=== PATIENT | female | born 1985 | race Caucasian/White ===

== ENCOUNTER 2016-11-03 22:46 | Emergency (ER) | payer OTHER ==
[~2016-11-03] VITALS: Ht 170.2 cm; Wt 90.7 kg
[~2016-11-03 22:46] MED LIST: SULF1TAB24 PO
--- NOTE | 2016-11-03 22:47 | ED.ADGEN ---
Past History Past Medical History: No Pertinent History Past Surgical History: Tonsillectomy Alcohol Use: None Drug Use: None Adult General Chief Complaint Chief Complaint " .. I was just setting around and got this bad lower abd. pain.."" [facility] HPI Patient is a 31 year old female who presents with above hx and complaints. She reports marked lower pelvic pain. Patient denies any trauma. Patient denies any bad food patient denies any change in bowel habits. Patient denies any dysuria. Patient denies any ill contacts. Patient denies any travel. Patient is normally healthy. Review of Systems Review of Systems Constitutional: Denies fever or chills [] Eyes: Denies change in visual acuity, redness, or eye pain [] HENT: Denies nasal congestion or sore throat [] Respiratory: Denies cough or shortness of breath [] Cardiovascular: No additional information not addressed in HPI [] GI: Complaints of lower Rt. abdominal pain. Denies nausea, vomiting, bloody stools or diarrhea [] : Denies dysuria or hematuria [] Musculoskeletal: Denies back pain or joint pain [] Integument: Denies rash or skin lesions [] Neurologic: Denies headache, focal weakness or sensory changes [] Endocrine: Denies polyuria or polydipsia [] Family History Family History Noncontributory Current Medications Current Medications Current Medications Medications (Trade) Dose Ordered Sig/Stella Start Time Stop Time Status Last Admin Dose Admin Ceftriaxone Sodium/Sodium Chloride (Rocephin/Iv Sodium Chloride 0.9% 50ml) 50 ml @ 100 mls/hr 1X ONCE 11/04/16 03:30 11/04/16 03:59 DC 11/04/16 03:30 100 MLS/HR Ceftriaxone Sodium (Rocephin) 1 gm STK-MED ONCE 11/04/16 04:02 11/04/16 11:27 DC Famotidine (Pepcid) 20 mg 1X ONCE 11/04/16 00:45 11/04/16 00:46 DC 11/04/16 00:45 20 MG Info 1 each 1 each PRN DAILY PRN 11/04/16 03:15 11/04/16 08:47 DC Iohexol (Omnipaque 240 Mg/ml) 30 ml 1X ONCE 11/04/16 03:30 11/04/16 03:31 DC 11/04/16 04:08 30 ML Iohexol (Omnipaque 300 Mg/ml) 75 ml 1X ONCE 11/04/16 03:30 11/04/16 03:31 DC 11/04/16 04:08 75 ML Lactated Ringer's (Iv Lactated Ringers) 1,000 ml @ 1,000 mls/hr Q1H 11/04/16 00:45 11/04/16 08:47 DC 11/04/16 01:31 1,000 MLS/HR Magnesium Hydroxide (Milk Of Magnesia) 2,400 mg 1X ONCE 11/04/16 00:45 11/04/16 00:46 DC 11/04/16 00:45 2,400 MG Magnesium Sulfate 50 ml @ 25 mls/hr 1X ONCE 11/04/16 04:00 11/04/16 05:59 DC 11/04/16 04:00 25 MLS/HR Ondansetron HCl (Zofran) 8 mg 1X ONCE 11/04/16 00:45 11/04/16 00:46 DC 11/04/16 00:45 8 MG Sodium Chloride (Iv Sodium Chloride 0.9% 50ml) 50 ml @ As Directed STK-MED ONCE 11/04/16 04:02 11/04/16 11:27 DC Trimethoprim/ Sulfamethoxazole 1 tab 1 tab 1X ONCE 11/04/16 02:15 11/04/16 02:16 DC 11/04/16 02:02 1 TAB See nursing for home meds Allergies Allergies Allergies Coded Allergies Type Severity Reaction Last Updated Verified codeine Allergy Unknown 11/09/14 No Physical Exam Physical Exam Constitutional: W, mild distress, non-toxic appearance. [] HENT: Normocephalic, atraumatic, bilateral external ears normal, oropharynx moist, no oral exudates, nose normal. [] Eyes: PERRLA, EOMI, conjunctiva normal, no discharge. [] Neck: Normal range of motion, no tenderness, supple, no stridor. [] Cardiovascular:Heart rate regular rhythm, no murmur [] Lungs & Thorax: Bilateral breath sounds clear to auscultation [] Abdomen: Bowel sounds decreased, soft, lower pelvic tenderness, no masses, no pulsatile masses. [] Patient declines rectal and pelvic exam at this time. Mild distention. Mild rebound to right lower quadrant Skin: Warm, dry, no erythema, no rash. [] Back: No tenderness, no CVA tenderness. [] Extremities: No tenderness, no cyanosis, no clubbing, ROM intact, no edema. [] Mild heel tap to right lower quadrant Neurologic: Alert and oriented X 3, normal motor function, normal sensory function, no focal deficits noted. [] Psychologic: Affect very anxious, judgement normal, mood normal. [] Current Patient Data Vital Signs Vital Signs Date Time Temp Pulse Resp B/P Pulse Ox O2 Delivery O2 Flow Rate FiO2 11/04/16 05:19 98.0 103 20 125/83 97 Room Air Lab Results Laboratory Tests Test 11/04/16 00:13 11/04/16 01:17 11/04/16 01:35 Urine Collection Type Unknown Urine Color Yellow Urine Clarity Hazy Urine pH 6.0 Urine Specific [place] >=1.030 Urine Protein Trace (NEG-TRACE) Urine Glucose (UA) Negmg/dL (NEG) Urine Ketones (Stick) Tracemg/dL (NEG) Urine Blood Small (NEG) Urine Nitrite Neg (NEG) Urine Bilirubin Neg (NEG) Urine Urobilinogen Dipstick 0.2mg/dL (0.2 mg/dL) Urine Leukocyte Esterase Trace (NEG) Urine RBC 0/HPF (0-2) Urine WBC 5-10/HPF (0-4) Urine Squamous Epithelial Cells Few/LPF Urine Bacteria Few/HPF (0-FEW) Urine Opiates Screen Neg (NEG) Urine Methadone Screen Neg (NEG) Urine Barbiturates Neg (NEG) Urine Phencyclidine Screen Neg (NEG) Urine Amphetamine/Methamphetamine Neg (NEG) Urine Benzodiazepines Screen Neg (NEG) Urine Cocaine Screen Neg (NEG) Urine Cannabinoids Screen Neg (NEG) Urine Ethyl Alcohol Neg (NEG) Urine Test Negative (NEG) White Blood Count 20.6x10^3/uL (4.0-11.0) H Red Blood Count 4.57x10^6/uL (3.50-5.40) Hemoglobin 13.8g/dL (12.0-15.5) Hematocrit 41.7% (36.0-47.0) Mean Corpuscular Volume 91fL (79-100) Mean Corpuscular Hemoglobin 30pg (25-35) Mean Corpuscular Hemoglobin Concent 33g/dL (31-37) Red Cell Distribution Width 13.4% (11.5-14.5) Platelet Count 284x10^3/uL (140-400) Neutrophils (%) (Auto) 84% (31-73) H Lymphocytes (%) (Auto) 11% (24-48) L Monocytes (%) (Auto) 5% (0-9) Eosinophils (%) (Auto) 1% (0-3) Basophils (%) (Auto) 0% (0-3) Neutrophils # (Auto) 17.2x10^3uL (1.8-7.7) H Lymphocytes # (Auto) 2.2x10^3/uL (1.0-4.8) Monocytes # (Auto) 0.9x10^3/uL (0.0-1.1) Eosinophils # (Auto) 0.2x10^3/uL (0.0-0.7) Basophils # (Auto) 0.1x10^3/uL (0.0-0.2) Segmented Neutrophils % 69% (35-66) H Band Neutrophils % 10% (0-9) H Lymphocytes % 16% (24-48) L Monocytes % 5% (0-10) Platelet Estimate Adequate (ADEQUATE) Reticulocyte Count (auto) 2.8% (0.5-2.5) H Maternal Serum HCG Beta Subunit < 1mIU/mL (0-6) Sodium Level 139mmol/L (136-145) Potassium Level 3.5mmol/L (3.5-5.1) Chloride Level 103mmol/L (98-107) Carbon Dioxide Level 26mmol/L (21-32) Anion Gap 10 (6-14) Blood Urea Nitrogen 16mg/dL (7-20) Creatinine 0.7mg/dL (0.6-1.0) Estimated GFR (Cockcroft-Gault) 96.4 Glucose Level 105mg/dL (70-99) H Calcium Level 9.0mg/dL (8.5-10.1) Total Bilirubin 0.5mg/dL (0.2-1.0) Direct Bilirubin 0.2mg/dL (0.0-0.2) Aspartate Amino Transferase (AST) 24U/L (15-37) Alanine Aminotransferase (ALT) 44U/L (14-59) Alkaline Phosphatase 70U/L (46-116) Total Protein 7.4g/dL (6.4-8.2) Albumin 4.1g/dL (3.4-5.0) Amylase Level 26U/L (25-115) Lipase 117U/L (73-393) EKG EKG [] Radiology/Procedures Radiology/Procedures I interpretation of abdomen film shows no free air under diaphragm. Increased stool. Nonspecific bowel gas pattern . IUD present CT of abdomen shows mild mesenteric adenopathy in right lower quadrant. No findings acute appendicitis. [] IUD present Course & Med Decision Making Course & Med Decision Making Pertinent Labs and Imaging studies reviewed. (See chart for details) Re-exam at 2:30 increased lower pelvic pain and some rebound and psoas pain. - will order CT Patient will be discharged home on a clear fluid diet for the next 48 hours. No solid or milk products. Patient take Tylenol or IbuProfen [id number] for pain. For marked pain patient is to take Vicoprofen up 4 times a day. Patient may take Zofran 8 mg up 4 times a day for nausea and vomiting. Patient to take Flagyl 500 mg 3 times a day x7 and Levaquin 500 mg a day for 5 days . Must have reexam if no improvement. Must follow-up primary care. Return if any concerns. [] Final Impression Final Impression 1. Abdomen Pain[] 2. Urinary tract infection 3. Constipation 4. Leukocytosis with bandemia 5. Mesenteric adenitis Problems: Dragon Disclaimer Dragon Disclaimer This electronic medical record was generated, in whole or in part, using a voice recognition dictation system. JULIEN KAUR MD Nov 03, 2016 22:47
[2016-11-04] MEDS ORDERED: FAMOTIDINE 20 MG/2 ML VIAL IVP ONE (00:45)
[2016-11-04] MEDS ORDERED: IV RINGERS SOLUTION,LACTATED 1,000 ML IV SCH (00:45)
[2016-11-04] MEDS ORDERED: ONDANSETRON PF 4 MG/2 ML VIAL. IV ONE (00:45)
[2016-11-04] MEDS ORDERED: MAGNESIUM HYDROXIDE 2,400 MG/30 ML ORAL.SUSP. PO ONE (00:45)
[2016-11-04 01:07] LABS: BARBITURATES NEG (NEG); BENZODIAZEPINES NEG (NEG); CANNABINOIDS NEG (NEG); COCAINE NEG (NEG); METHADONE NEG (NEG); OPIATES NEG (NEG); PHENCYCLIDINE NEG (NEG)
[2016-11-04 01:08] LABS: AMPHETAMINE/METHAMPHETAMINE NEG (NEG)
[2016-11-04 01:16] LABS: BILIRUBIN,URINE NEG (NEG); CLARITY,URINE HAZY; COLOR,URINE YELLOW; GLUCOSE,URINE NEG (NEG)
[2016-11-04 01:17] LABS: BACTERIA,URINE FEW /HPF (0-FEW); NITRITE,URINE NEG (NEG); RBC,URINE 0 /HPF (0-2); SQUAMOUS EPITHELIAL CELL,UR FEW /LPF; UROBILINOGEN,URINE 0.2 mg/dL (0.2 mg/dL)
[2016-11-04 01:46] LABS: U PREG PATIENT NEGATIVE (NEG)
[2016-11-04 01:58] LABS: BASO # 0.1 x10^3/uL (0.0-0.2); BASO % 0 % (0-3); EOS # 0.2 x10^3/uL (0.0-0.7); EOS % 1 % (0-3); HEMATOCRIT 41.7 % (36.0-47.0); HEMOGLOBIN 13.8 g/dL (12.0-15.5); LYMPH # 2.2 x10^3/uL (1.0-4.8); LYMPH % 11 % (24-48); MEAN CORPUSCULAR HEMOGLOBIN 30 pg (25-35); MEAN CORPUSCULAR HGB CONC 33 g/dL (31-37); MEAN CORPUSCULAR VOLUME 91 fL (79-100); MONO # 0.9 x10^3/uL (0.0-1.1); MONO % 5 % (0-9); NEUT # 17.2 x10^3uL (1.8-7.7); NEUT % 84 % (31-73); PLATELET COUNT 284 x10^3/uL (140-400); RED BLOOD COUNT 4.57 x10^6/uL (3.50-5.40); RED CELL DISTRIBUTION WIDTH 13.4 % (11.5-14.5); WHITE BLOOD COUNT 20.6 x10^3/uL (4.0-11.0)
[2016-11-04 02:10] LABS: ALBUMIN 4.1 g/dL (3.4-5.0); CREATININE 0.7 mg/dL (0.6-1.0); DIRECT BILIRUBIN 0.2 mg/dL (0.0-0.2); GFR 96.4; POTASSIUM 3.5 mmol/L (3.5-5.1); TOTAL BILIRUBIN 0.5 mg/dL (0.2-1.0); TOTAL PROTEIN 7.4 g/dL (6.4-8.2)
[2016-11-04] MEDS ORDERED: SMZ/TMP 800/160MG TABLET. PO ONE (02:15)
[2016-11-04 02:34] LABS: % BANDS 10 % (0-9); % LYMPHS 16 % (24-48); % MONOS 5 % (0-10); % SEGS 69 % (35-66); PLT ESTIMATE ADEQUATE (ADEQUATE)
[2016-11-04] MEDS ORDERED: CONTRAST GIVEN MC PRN (03:15)
[2016-11-04] MEDS ORDERED: CEFTRIAXONE SODIUM 1 GM in IV NORMAL SALINE 50ML 50 ML IV ONE (03:30)
[2016-11-04] MEDS ORDERED: IOHEXOL 300 MG/ML 75 ML VIAL. IV ONE (03:30)
[2016-11-04] MEDS ORDERED: IOHEXOL 240 MG/ML 50ML VIAL. PO ONE (03:30)
[2016-11-04] MEDS ORDERED: MAGNESIUM SULFATE 2GM 50 ML IV ONE (04:00)
[2016-11-04] MEDS ORDERED: IV NORMAL SALINE 50ML 50 ML ONE (04:02)
[2016-11-04] MEDS ORDERED: CEFTRIAXONE SODIUM 1 GM VIAL IV ONE (04:02)
--- NOTE | 2016-11-04 04:35 | RAD ---
PROCEDURE CT abdomen and pelvis with contrast. HISTORY TECHNIQUE After IV infusion of95 cc of Optiray-320, helical CT scanning of the abdomen and pelvis was performed.GI contrast was administered by mouth. FINDINGS The liveer is homogeous in appearance and normal in size. The spleen is unremarkable and normal in size. The pancreas is homogeneous in appearance and no focal enlargement is seen. The gallbladder appears normal and no intra or extrahepatic biliary ductal dilatation is seen. No focal aneurysmal dilatation of the abdominal aorta is seen. No enlarged abdominal or pelvic lymphadenopathy is seen. No soft tissue mass is seen. No obstructive bowel pattern or bowel wall thickening or inflammatory change is seen. No free intraperitoneal fluid or abscess or free intraperitoneal air is seen. The lung bases are clear. Both kidneys are functioning and no hydronephrosis or renal mass or perinephric fluid collection is seen. The urinary bladder wall is smooth. No adrenal masses are seen. [There are multiple small borderline size mesenteric lymph nodes in the right lower quadrant. The appendix is small and not well seen but appears normal. IUD within the uterus appears well positioned. IMPRESSION Mild mesenteric lymphadenopathy in the right lower quadrant could be lymphadenitis. Electronically signed by: Jared Marinelli MD (Nov 04, 2016 04:34:06)
[2016-11-04] MEDS ORDERED: HYDR-79 PO (05:08)
[2016-11-04] MEDS ORDERED: METR500T PO (05:08)
[2016-11-04] MEDS ORDERED: LEVO500T38 PO (05:08)
[2016-11-04] MEDS ORDERED: ONDA8TAB12 PO (05:08)
[2016-11-04 05:19] VITALS: BP 125/83
--- NOTE | 2016-11-04 08:14 | RAD ---
Acute abdomen series History: Severe lower abdominal pain tonight. Comparison: None. Findings: Frontal view of the chest. Cardiac silhouette appears within normal limits for size. No pneumoperitoneum or pneumothorax is identified. No acute infiltrate is seen. Supine and upright views of the abdomen. No dilated loops of bowel are seen. IUD is seen. Mild-moderate colonic stool is present. Impression: No acute abnormality identified in the chest or abdomen.
== END 2016-11-04 05:19 | disposition home or self-care (01) ==
LOC: ER 22:49
DX: R10.2 Pelvic and perineal pain (principal); R10.30 Lower abdominal pain, unspecified; Z88.6 Allergy status to analgesic agent
CPT/HCPCS: 36415; 74022; 74177; 80048; 80076; 80305; 81001; 81025; 82150; 83690; 84702; 85007; 85027; 85045; 87086; 96361; 96365; 96367; 96375; 99285; J0696; J2405; J3475; J7120; Q9966; Q9967; S0028; G0481

== ENCOUNTER → 2017-09-28 | Outpatient (CLI) | payer OTHER ==
[~2017-09-28] MED LIST changes: +HYDR-79 PO; +LEVO500T59 PO; +METR500T PO; +ONDA8TAB12 PO
--- NOTE | 2017-09-28 10:34 | RAD ---
Examination: 2 views of the sacrum and coccyx. History: History of softball injury, pain Comparison: None available Findings: The visualized sacrum, coccyx demonstrate no definite evidence of displaced fracture. Impression: No acute osseous findings.
--- NOTE | 2017-09-28 10:36 | RAD ---
Examination: 2 views of the right hip History: History of injury, right hip pain Comparison: None available. Findings: The femoral head is within the stomach. There is no obvious acute fracture or dislocation identified. Impression: No acute osseous findings.
== END | disposition home or self-care (01) ==
LOC: PMG 09:30
PROVIDERS: ATTEND Physician Assistant Medical
DX: M54.5 Low back pain (principal); M25.551 Pain in right hip
CPT/HCPCS: 72220; 73502